=== PATIENT | male | born 1990 | race African-American/Black ===

== ENCOUNTER 2023-12-10 06:26 | Emergency (ER) | payer SELFPAY ==
[~2023-12-10] VITALS: Ht 190.5 cm; Wt 77.0 kg
[2023-12-10 06:36] VITALS: BP 132/87; TEMP 97.8; O2SAT 98
[2023-12-10 06:37] VITALS: PULSE 114; RESP 16
[2023-12-10] MEDS ORDERED: HYDROCODONE/ACETAMINOPHEN 5/325MG TABLET PO ONE (07:15)
== END 2023-12-10 07:45 | disposition left against medical advice (07) ==
LOC: ER 06:56
DX: M54.2 Cervicalgia (principal); Z98.890 Other specified postprocedural states
CPT/HCPCS: 99283